=== PATIENT | male | born 1960 | race Asian ===

== ENCOUNTER 2018-08-19 13:57 | Emergency (ER) | payer OTHER ==
[~2018-08-19] VITALS: Ht 175.3 cm; Wt 90.9 kg
[2018-08-19] MEDS ORDERED: SIMV-259 PO (14:08)
[2018-08-19] MEDS ORDERED: CARV3 PO (14:08)
[2018-08-19] MEDS ORDERED: METF-960 PO (14:08)
[2018-08-19] MEDS ORDERED: ISOS5TAB5 PO (14:08)
[2018-08-19] MEDS ORDERED: CLOP75TA3 PO (14:08)
[2018-08-19] MEDS ORDERED: ASPI81 PO (14:08)
[2018-08-19] MEDS ORDERED: OLAN2.5T3 PO (14:08)
[2018-08-19] MEDS ORDERED: LISI-660 PO (14:08)
[2018-08-19 14:09] LABS: GLUCOSE,POINT OF CARE 124 MG/DL (70-110)
[2018-08-19 15:37] VITALS: BP 112/68
== END 2018-08-19 15:40 | disposition home or self-care (01) ==
LOC: EMS 13:57
DX: N48.21 Abscess of corpus cavernosum and penis (principal); I10 Essential (primary) hypertension; E78.00 Pure hypercholesterolemia, unspecified; E11.9 Type 2 diabetes mellitus without complications; Z95.0 Presence of cardiac pacemaker; Z79.899 Other long term (current) drug therapy; Z79.82 Long term (current) use of aspirin; Z79.84 Long term (current) use of oral hypoglycemic drugs